=== PATIENT | female | born 1960 | race Caucasian/White ===

== ENCOUNTER → 2017-02-01 | Outpatient (CLI) | payer OTHER ==
[~2017-02-01] MED LIST: ALDACTONE PO; ASPIRIN EC81 M1 PO; BACTRIM DS TABL1 TAB PO; DAKIN'S3840 ML TOP; ENTRESTO 24 MG1 EACH PO; FUROSEMIDE40 MG PO; KEFLEX PO; LEVAQUIN PO; LIPITOR40 MG PO; NO MEDICATIONS; PERCOCET PO; PERCOCET5/325 PO; SYNTHROID PO; TOPROL XL 50 MG50 MG PO; VICODIN 5/500 T1 TAB PO
== END | disposition home or self-care (01) ==
LOC: CECH 13:22
DX: I50.22 Chronic systolic (congestive) heart failure (principal)
CPT/HCPCS: 93306